=== PATIENT | female | born 1965 | race Caucasian/White ===

== ENCOUNTER 2022-02-08 08:47 | Day surgery (SDC) | payer OTHER ==
[~2022-02-08] VITALS: Ht 157.5 cm; Wt 95.1 kg
[~2022-02-08 08:47] MED LIST: CENEST; COLACE 100100 MG/CAP PO; DULCOLAX S10 MG/SUPP RC; EXCEDRIN MIGRAI1 TAB PO; [UNRECOGNIZED DRUG - OTHER]
[2022-02-08] MEDS ORDERED: NEURONTIN300 MG/CAP PO (09:56)
[2022-02-08] MEDS ORDERED: AMBIEN CR 12.12.5 MG PO (09:56)
[2022-02-08] MEDS ORDERED: IMITREX ST6 MG/0.5 M (09:57)
[2022-02-08] MEDS ORDERED: MOTRIN 800800 MG/TAB PO (09:58)
[2022-02-08] MEDS ORDERED: TOPAMAX 25MG25 M1 PO (09:59)
[2022-02-08] MEDS ORDERED: PEPCID 20MG TAB20 MG PO (09:59)
[2022-02-08] MEDS ORDERED: MULTIPLE VITAMI1 TA5 PO (10:00)
[2022-02-08] MEDS ORDERED: PHARMASSURE ZIN50 MG PO (10:00)
[2022-02-08] MEDS ORDERED: MAGNESIUM500 MG PO (10:01)
[2022-02-08 12:45] VITALS: BP 111/78; PULSE 74
[2022-02-08 13:00] VITALS: BP 115/77; PULSE 59
[2022-02-08 13:15] VITALS: BP 120/66; PULSE 60
[2022-02-08 13:30] VITALS: BP 125/69; PULSE 61
[2022-02-08 14:14] VITALS: BP 125/85; PULSE 18; TEMP 97.2
--- NOTE | 2022-02-08 14:54 | NUR ---
1245: Patient brought back into [facility] from endo procedure. Report received from SHASHI Ellsworth. Patient vitally stable on room air. Denies pain or nausea. Requesting muffins and water. Call light left within reach. 1250: Dr. Rojas in to see patient. Daughter on speaker phone with MD. 1300: Patient tolerating food and drink well. Denies pain or nausea. Vital signs stable on room air. 1320: Patient tolerating food and drink well. Denies pain or nausea. Vital signs stable on room air. Awaiting ride. 1340: Patient up to restroom via ambulation and stand by assist. Patient to get dressed at this time. 1400: Patient meets discharge criteria. IV removed without complications. Went through discharge instructions. Questions answered. Patient to use call light when ride gets here. 1430: Patient denies pain and nausea. No needs at this time. 1450: Patient escorted to the patient entrance via wheelchair. Patient got into personal vehicle and left in the care of her friend, Ivory.
== END 2022-02-08 14:54 | disposition home or self-care (01) ==
LOC: SDCO 08:47
DX: Z12.11 Encounter for screening for malignant neoplasm of colon (principal); D12.5 Benign neoplasm of sigmoid colon; K64.1 Second degree hemorrhoids; K63.5 Polyp of colon; F17.210 Nicotine dependence, cigarettes, uncomplicated; Z86.16 Personal history of COVID-19; G47.33 Obstructive sleep apnea (adult) (pediatric); Z79.899 Other long term (current) drug therapy
CPT/HCPCS: J2704; J7030